=== PATIENT | female | born 1955 | race Caucasian/White ===

== ENCOUNTER → 2016-07-10 | Day surgery (SDC) | payer BC ==
[~2016-07-10] MED LIST: ALPRAZolam 0.25 MG TAB ONE; BACITRACIN OINT 1 EACH PACKET TOPICAL ONE; LIDOCAINE 1% INJ 10MG/ML (20 ML MDV) ONE; LIDOCAINE 1%-EPI 1:100,000 20 ML VIAL ONE; SODIUM BICARB 4% 5 ML VIAL (0.48 MEQ/ML) ONE
--- NOTE | 2016-07-10 13:52 | USB ---
EXAMINATION TYPE: US biopsy breast VAD LT, US biopsy breast VAD RT MG diagnostic mammo BI post biopsy DATE OF EXAM: 07/10/2016 12:48 PM CLINICAL HISTORY: 60-year-old female abnormal mammogram, referred for breast biopsy. TECHNIQUE: Ultrasound guided core biopsy of the bilateral breasts. COMPARISON: 06/05/2016, 05/16/2016 FINDINGS: The procedure of ultrasound guided core biopsy was explained to the patient. Benefits, alternatives, and risks were discussed. An informed consent was then obtained. The patient was placed in supine positioning for imaging and for the procedure. The overlying skin was prepped and draped in usual sterile fashion. LEFT BREAST 1:00, suspicious shadowing lesion: Lidocaine buffered with bicarbonate was used as anesthetic into the skin and subcutaneous tissue up to area of concern. Under ultrasound guidance, a 13-gauge vacuum-assisted mammotome Elite biopsy gun was used to obtain 7 core samples. Following this, a ribbon clip was left in lesion. Note that the left axilla was initially scanned and shows no abnormal lymphadenopathy. RIGHT BREAST 9:00, periareolar, vascular lesion: Lidocaine buffered with bicarbonate was used as anesthetic into the skin followed by lidocaine + epinephrine into the subcutaneous tissue up to area of concern. Under ultrasound guidance, a 13-gauge vacuum-assisted mammotome Elite biopsy gun was used to obtain 5 core samples. Following this, a coil clip was left in lesion. Postbiopsy mammograms show clips in position. The patient tolerated the procedure well without any immediate complication. The patient was kept in the radiology department for short stay after the procedure and then discharged home in stable condition. IMPRESSION: Successful, uncomplicated ultrasound guided core biopsy of: a) 1:00 left breast suspicious lesion. b) 9:00 periareolar right breast vascular lesion. Full pathology results to follow. Pathology Results: Malignant A. 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 FOCAL FEATURES SUGGESTIVE OF INVASION, PENDING SPECIAL STAINS. B. BREAST, LEFT, ULTRASOUND GUIDED CORE BIOPSY: INVASIVE DUCTAL CARCINOMA. Recommendation Appropriate surgical management. CHRISTELD
== END | disposition home or self-care (01) ==
LOC: RADUSWWP 10:31
PROVIDERS: ATTEND Surgery
DX: D05.11 Intraductal carcinoma in situ of right breast (principal); C50.912 Malignant neoplasm of unspecified site of left female breast; N64.1 Fat necrosis of breast; R92.8 Other abnormal and inconclusive findings on diagnostic imaging of breast
CPT/HCPCS: 88305; 88342; 88341; 19083; 19084; G0204; A4648; J2001

== ENCOUNTER 2016-07-25 07:10 | Day surgery (SDC) | payer BC ==
[2016-07-24 08:18] VITALS: BMI 36.5
[~2016-07-25 07:10] MED LIST changes: -ALPRAZolam 0.25 MG TAB ONE; +ALPRAZolam 0.5 MG TAB PO PRN; -BACITRACIN OINT 1 EACH PACKET TOPICAL ONE; +DEXAMETHASONE SOD PHOSPHATE 10 MG/ML 1 ML VIAL IV ONE; +HYDROmorphone 1 MG/ML 1 ML SYRINGE IVP PRN; +LACTATED RINGERS 1,000 ML IV SCH; +LIDOCAINE 1% 20 ML VIAL (10MG/ML) FOR IV START INTRADERMA PRN; -LIDOCAINE 1% INJ 10MG/ML (20 ML MDV) ONE; -LIDOCAINE 1%-EPI 1:100,000 20 ML VIAL ONE; +METHYLENE BLUE 50 MG/10 ML AMPUL ONE; +ONDANSETRON 4 MG/2 ML VIAL IVP ONE; +SCOPOLAMINE 1.5MG/72HR PATCH TRANSDERM ONE; -SODIUM BICARB 4% 5 ML VIAL (0.48 MEQ/ML) ONE; +ceFAZolin 2 GM in SODIUM CHLORIDE 0.9% 100 ML IVPB ONE
[2016-07-25] MEDS ORDERED: LIDOCAINE 1% 20 ML VIAL (10MG/ML) FOR IV START INTRADERMA ONE (07:44)
[2016-07-25 07:46] VITALS: RESP 16
[2016-07-25 08:34] LABS: Potassium 3.9 mmol/L (3.5-5.1)
[2016-07-25] MEDS ORDERED: HEPARIN SODIUM,PORCINE 5,000 UNIT/ML 1 ML VIAL SQ ONE (08:37)
[2016-07-25] MEDS ORDERED: SODIUM BICARB 4% 5 ML VIAL (0.48 MEQ/ML) MISCELLANE ONE ×2 (08:42→08:56)
[2016-07-25] MEDS ORDERED: LIDOCAINE 1% INJ 10MG/ML (20 ML MDV) SQ ONE ×2 (08:42→08:56)
[2016-07-25] MEDS ORDERED: METHYLENE BLUE 50 MG/10 ML AMPUL ONE (09:00)
--- NOTE | 2016-07-25 09:48 | NM ---
EXAMINATION TYPE: NM sentinel node injection DATE OF EXAM: 07/25/2016 9:38 AM COMPARISON: NONE HISTORY: Newly diagnosed bilateral breast cancer. TECHNIQUE AND FINDINGS: The procedure of sentinel lymph node injection was explained to the patient. The benefits, alternatives, and risks were discussed. An informed consent was then obtained. Overlying skin is cleaned with sterile alcohol. Lidocaine buffered with bicarbonate was used as anes thetic into the skin and subcutaneous tissue surrounding the nipple. Following this, 550uCi & 545 uC i Tc 99m Filtered Sulfur Colloid was injected into 4 equivalent doses at 12, 3, 6, and 9:00 position surrounding the bilateral nipples intradermally. The injection sites were massaged by industrial technologist for 10 minutes after injection. T he patient tolerated the procedure well without any immediate complication. The patient was kept in the radiology department for short stay after the procedure and then taken to surgery for surgical pr ocedure what is presumed intraoperative gamma probe will be used for sentinel lymph node detection. IMPRESSION: Bilateral breast radiotracer injection for sentinel node localization as above.
[2016-07-25] MEDS ORDERED: fentaNYL (PF) 50 MCG/ML 2 ML AMP ONE (10:14)
[2016-07-25] MEDS ORDERED: MIDAZOLAM 2 MG/2 ML VIAL ONE (10:14)
[2016-07-25] MEDS ORDERED: VECURONIUM 10 MG VIAL IV ONE (10:14)
[2016-07-25] MEDS ORDERED: PROPOFOL 10 MG/ML 20 ML VIAL IV ONE (10:14)
[2016-07-25] MEDS ORDERED: GLYCOPYRROLATE 0.2 MG/ML 2 ML VIAL ONE (10:14)
[2016-07-25] MEDS ORDERED: NEOSTIGMINE 1 MG/ML 10 ML VIAL ONE (10:14)
[2016-07-25] MEDS ORDERED: LIDOCAINE 1% INJ 10MG/ML (20 ML MDV) ONE (10:14)
[2016-07-25] MEDS ORDERED: ePHEDrine 50 MG/ML 1 ML AMP ONE (10:14)
[2016-07-25] MEDS ORDERED: HYDROmorphone (PF) 1 MG/ML ONE (10:14)
[2016-07-25] MEDS ORDERED: SUCCINYLCHOLINE CHLORIDE 100 MG/5 ML SYR IV ONE (10:14)
[2016-07-25] MEDS ORDERED: METHYLENE BLUE 10 MG/ML 1 ML VIAL INJ ONE (10:20)
[2016-07-25] MEDS ORDERED: LACTATED RINGERS 1,000 ML IV ONE ×2 (11:27→16:08)
--- NOTE | 2016-07-25 13:36 | MM ---
EXAMINATION TYPE: MG pre op needle loc LT, MG surgical specimen LT, MG surgical specimen RT, MG pre op needle loc RT DATE OF EXAM: 07/25/2016 9:29 AM COMPARISON: Prior bilateral diagnostic breast mammogram July 10, 2016 after biopsy. CLINICAL HISTORY: Newly diagnosed bilateral breast cancer TECHNIQUE: Needle localization with wire placement and surgical excision of area of concern in the bilateral breasts. FINDINGS: The procedure of needle localization with wire placement and than surgical excision was explained to the patient. Benefits, alternatives, and risks were discussed. An informed consent was then obtained. The lateral approach was chosen on the left as well as fairly similar in distance to cranial approach. A cranial approach was attempted on the right as was fairly similar to lateral approach. The overlying skin was prepped and draped in usual sterile fashion. Lidocaine buffered with bicarbonate was used as anesthetic into the skin and subcutaneous tissue up to the level of area of concern. A 5 cm needle was used on the right. A 7 cm needle was used on the left. Subsequent 90 degrees mammogram show the needle to be in satisfactory position relative to the targeted area. At this point, wire was placed and the needle was withdrawn. The wire was fixed to patient's skin. Images were marked for surgeon for both breasts. The patient tolerated the procedure well without any immediate complication. The patient was kept in the radiology department for short stay after the procedure and then taken to surgery for surgical excision. Targeted biopsy clips and wire are identified in specimen mammogram in both breasts. The patient was kept in hospital for short stay after the procedure and then discharged home in stable condition. IMPRESSION: Successful, uncomplicated needle localization with wire placement and surgical excision of targeted biopsy clips in the bilateral breasts , full pathology results to follow. Pathology Results: Malignant A. LYMPH NODE, RIGHT, SENTINEL NODE BIOPSY: TWO LYMPH NODES NEGATIVE FOR METASTASIS (CYTOKERATIN 7 AND RODERICK IMMUNOHISTOCHEMICAL STAINS ARE CONFIRMATORY). B. LYMPH NODE, LEFT, SENTINEL NODE BIOPSY: LYMPH NODES NEGATIVE FOR METASTASIS ( CYTOKERATIN 7 AND RODERICK IMMUNOHISTOCHEMICAL STAINS ARE CONFIRMATORY). C. LYMPH NODE, LEFT, SENTINEL NODE BIOPSY: LYMPH NODES NEGATIVE FOR METASTASIS ( CYTOKERATIN 7 AND RODERICK IMMUNOHISTOCHEMICAL STAINS ARE CONFIRMATORY). D. BREAST, LEFT, NEEDLE LOCALIZATION BIOPSY: INVASIVE DUCTAL CARCINOMA AND DUCT CARCINOMA IN SITU. ATYPICAL DUCTAL HYPERPLASIA. INTRADUCTAL PAPILLOMA WITH ATYPIA. FIBROCYSTIC CHANGE (STROMAL FIBROSIS, CYST FORMATION, APOCRINE METAPLASIA, ADENOSIS, COLUMNAR CELL CHANGE, AND DUCT HYPERPLASIA). BIOPSY SITE CHANGE. E, BREAST, RIGHT, IMAGE GUIDED WIRE LOCALIZATION AND LUMPECTOMY: PENDING CONSULTATION. F. BREAST, RIGHT NEW MEDIAL MARGIN, EXCISIONAL BIOPSY: FIBROCYSTIC CHANGE ( STROMAL FIBROSIS, CYST FORMATION, ADENOSIS AND MILD DUCT HYPERPLASIA). G. LYMPH NODE, AXILLARY, LYMPH NODE BIOPSY: TOW LYMPH NODES NEGATIVE FOR METASTASIS. ADDENDUM REPORT BREAST, RIGHT LUMPECTOMY ([id number]; [id number], 07/25/16): LOW NUCLEAR GRADE DUCTAL CARCINOMA IN SITU INVOLVING AN INTRADUCTAL PAPILLOMA. ATYPICAL LOBULAR HYPERPLASIA. FIBROCYSTIC CHANGES. BIOPSY SITE CHANGES. PLEASE SEE LETTER. Recommendation Surgical consult of the right and left breast. MTDD
--- NOTE | 2016-07-25 13:48 | P.OP ---
Date of Procedure: 07/25/16 Preoperative Diagnosis: Right breast DCIS, left breast invasive ductal breast cancer Postoperative Diagnosis: Same Procedure(s) Performed: Bilateral methylene blue injection for lymphatic node mapping, bilateral lumpectomies, bilateral BioSorb insertion, bilateral sentinel node biopsy Implants: BioSorb 2; 4 x 4 centimeters Anesthesia: KATEA Surgeon: Yuki Dallas Estimated Blood Loss (ml): 10 IV fluids (ml): 1,500 Urine output (ml): 200 Pathology: other (Bilateral lumpectomy specimens, bilateral sentinel nodes) Condition: stable Disposition: PACU Indications for Procedure: Right breast DCIS on core biopsy, left breast invasive ductal cancer on core biopsy Operative Findings: Right breast sentinel node negative on frozen section for cancer, left breast Description of Procedure: Patient is a 60-year-old white female who presented for bilateral lumpectomy and bilateral sentinel node biopsy. The patient had bilateral pulmonary biopsy was performed. The patient's breast was ductal carcinoma in situ left breast was invasive ductal carcinoma. The options of bilateral mastectomy versus lumpectomy discussed with the patient. The option of preoperative MRI was discussed with the patient. The patient did not want to have an MRI performed. She did not want bilateral mastectomies. Therefore proceeding with bilateral lumpectomies and sentinel node biopsies. Patient was taken to the operating room and following induction of general anesthesia both breasts and axilla were prepped and draped in a sterile fashion. Prior to this 5 mL of half-strength methylene blue were injected into the periareolar area. The specimen was then massaged to allow the blue dye to travel to the sentinel lymph nodes. Again after this had been accomplished both breasts were prepped and draped as well as both axilla in a sterile fashion. The right breast which was passed with DCIS was approached initially. Circumareolar incision was made and carried down to the hook of the Olympus video localization. Surrounding tissue was excised. The tissue was interrogated using the margin probe and the margin was positive for malignancy. Therefore additional tissue was taken at the medial margin. The specimen was painted and sent to radiology for confirmation that the area of concern about removed was obtained. This was visualized and evaluated by the surgeon as well and it was felt that the clip was in good position. Following this after we were assured that hemostasis was attained onco plastic surgical freeing of the anterior portion of the breast was performed. Thsi was done for pproximately 5 cm anteriorly. The lateral tissue was reapproximated. The cavity was then measured a 4 x 4 Biozorb coil was chosen. This was placed and secured using 3-0 Vicryl suture. The breast tissue was closed anterior to this. The deep tissues were closed using 3-0 Vicryl suture. The skin was closed using a 4-0 Monocryl. The conchal plastic tissue manipulation was approximately 5 cm x 4 cm approximately 20 square cm of tissue. Following this the left breast was approached. Incision was made in the area of the RIGHT lobe. The artery was identified and the surrounding tissue was excised. This was accomplished using electrocautery as well as the Harmonic scalpel. The specimen was interrogated using the margin probe and all margins were negative for cancer. Dissection had been performed down to the pectoralis major muscle. After assured that hemostasis was attained the specimen was painted and sent for radiographic evaluation. Confirmation that the area of concern about removed was obtained. Following this the cavity was measured for BioSorb placement. A 4 x 4 BioSorb was chosen. This was placed and secured using 3-0 Vicryl suture. The breast tissue was closed anteriorly using a Vicryl suture. The skin was closed using 4-0 Monocryl. The right axilla was then approached and gloves and instruments were obtained. Using the neoprobe the location for the incision was chosen. An axillary incision was made and careful dissection into the axilla revealed 2 radioactive blue lymph nodes. These were removed and sent for pathologic evaluation. Pathologic evaluation was negative for cancer. No further suspicious lymph nodes were identified in the right axilla. The left axilla was then approached. Again using the neoprobe the area for skin incision was determined. The axilla was entered and two radioactive lymph, blue nodes were identified. These were removed and sent for frozen section evaluation. These were negative for cancer. The deep tissues were closed using 3-0 Vicryl suture. The skin was closed using 4-0 Monocryl. At the end of the case all instrument and sponge counts were correct. The patient tolerated the procedure in stable condition.
--- NOTE | 2016-07-25 13:50 | P.DS ---
Providers Attending physician: Yuki Dallas Primary care physician: Melody Chen Plan - Discharge Summary New Discharge Prescriptions: HYDROcodone/APAP 5-325MG [[place] 5] 1 - 2 each PO Q4H PRN #20 tab PRN Reason: Pain Discharge Medication List Hydrochlorothiazide 25 mg PO DAILY 09/16/14 [History] ARIPiprazole [Abilify] 10 mg PO DAILY 07/24/16 [History] Levothyroxine Sodium [Synthroid] 75 mcg PO DAILY 07/24/16 [History] Losartan Potassium [Cozaar] 100 mg PO DAILY 07/24/16 [History] Pramipexole [Mirapex] 0.5 mg PO ONCE 07/24/16 [History] Soy Isofla/Blk Cohosh/Mag Bark [[place]roven 155 mg Capsule] 155 mg PO DAILY [History] amLODIPine [Norvasc] 10 mg PO DAILY 07/24/16 [History] HYDROcodone/APAP 5-325MG [[place] 5] 1 - 2 each PO Q4H PRN #20 tab 07/25/16 [Rx] Follow up Appointment(s)/Referral(s): Yuki Dallas MD [STAFF PHYSICIAN] - 1 Week Activity/Diet/Wound Care/Special Instructions: Do not drive today Do not drive if taking narcotic pain medication Patient may shower after 48 hours wear Bra at all times Discharge Disposition: HOME SELF-CARE
[2016-07-25 14:02] VITALS: TEMP 97.6
[2016-07-25] MEDS ORDERED: ONDANSETRON 4 MG/2 ML VIAL IVP ONE (15:32)
[2016-07-25 16:30] VITALS: BP 116/72; PULSE 66
== END 2016-07-25 16:36 | disposition home or self-care (01) ==
LOC: OR 07:10
PROVIDERS: ATTEND Surgery
DX: C50.912 Malignant neoplasm of unspecified site of left female breast (principal); D05.11 Intraductal carcinoma in situ of right breast; D24.2 Benign neoplasm of left breast; D24.1 Benign neoplasm of right breast; N60.12 Diffuse cystic mastopathy of left breast; N60.11 Diffuse cystic mastopathy of right breast; N60.82 Other benign mammary dysplasias of left breast; N60.91 Unspecified benign mammary dysplasia of right breast; N60.22 Fibroadenosis of left breast; N60.21 Fibroadenosis of right breast; N60.92 Unspecified benign mammary dysplasia of left breast; Z80.3 Family history of malignant neoplasm of breast; I10 Essential (primary) hypertension; E03.9 Hypothyroidism, unspecified; F32.9 Major depressive disorder, single episode, unspecified; I34.1 Nonrheumatic mitral (valve) prolapse; K21.9 Gastro-esophageal reflux disease without esophagitis; Z79.899 Other long term (current) drug therapy
CPT/HCPCS: 19301; 38525; 80051; 88342; 88331; 88332; 88307; 88341; 76098 ×2; 19281; 19282; 38792; C1713; A9541; J2250; J1644; J2710; J0690; J2405; J2001; J3010; J1170; J0330; J2704; Q9968

== ENCOUNTER → 2019-11-12 | Outpatient (CLI) | payer BC ==
[2019-11-12 13:40] VITALS: BP 140/75; PULSE 91; RESP 16; TEMP 98.6; BMI 36.3
--- NOTE | 2019-11-12 14:42 | P.GSHP ---
History of Present Illness H&P Date: 11/12/19 She comes in with troubles with her band. She has had her band beyond 10 years. She reports troubles find. She has heartburn. No pain. No redness. No band revisions. She wants her band out. Discharge instructions. She has a heart condition. Dr Gomez cardiac clearance. She does not take a MVI. Easily palpable port without pain. Labs bariatric Dr Gomez cardiac clearance Remove band. Past Medical History Past Medical History: Cancer, GERD/Reflux, Hypertension, Mitral Valve Prolapse (MVP), Thyroid Disorder Additional Past Medical History / Comment(s): mitral valve leak. BILAT BREAST CANCER History of Any Multi-Drug Resistant Organisms: None Reported Past Surgical History: Bariatric Surgery, Section, Cholecystectomy Additional Past Surgical History / Comment(s): lap band, 2 c-sections. BREAST BIOPSY BILAT Past Anesthesia/Blood Transfusion Reactions: No Reported Reaction Past Psychological History: No Psychological Hx Reported Smoking Status: Never smoker Past Alcohol Use History: Occasional Past Drug Use History: None Reported - Past Family History Mother Family Medical History: Cancer, Diabetes Mellitus Additional Family Medical History / Comment(s): breast cancer Medications and Allergies Home Medications Medication Instructions Recorded Confirmed Type Hydrochlorothiazide 25 mg PO DAILY 09/16/14 07/24/16 History ARIPiprazole [Abilify] 10 mg PO DAILY 07/24/16 07/24/16 History Levothyroxine Sodium [Synthroid] 75 mcg PO DAILY 07/24/16 07/24/16 History Losartan Potassium [Cozaar] 100 mg PO DAILY 07/24/16 07/24/16 History Pramipexole [Mirapex] 0.5 mg PO ONCE 07/24/16 07/25/16 History Soy Isofla/Blk Cohosh/Mag Bark 155 mg PO DAILY 07/24/16 07/24/16 History [[place]ro[place] 155 mg Capsule] amLODIPine [Norvasc] 10 mg PO DAILY 07/24/16 07/24/16 History HYDROcodone/APAP 5-325MG [[place] 5] 1 - 2 each PO Q4H PRN #20 tab 07/25/16 Rx Allergies Allergy/AdvReac Type Severity Reaction Status Date / Time No Known Allergies Allergy Verified 07/25/16 07:38 Surgical - Exam Vital Signs Temp Pulse Resp BP 98.6 F 91 16 140/75 06/24/20 13:38 11/12/19 13:38 11/12/19 13:38 11/12/19 13:38
[2019-11-12 15:27] LABS: HGB 15.9 gm/dL (11.4-16.0); MCHC 32.5 g/dL (31.0-37.0); MCV 92.1 fL (80.0-100.0); Mean Platelet Volume 7.1; Platelet Count 331 k/uL (150-450); RBC 5.32 m/uL (3.80-5.40); RDW 13.3 % (11.5-15.5); WBC 6.2 k/uL (3.8-10.6)
[2019-11-12 15:35] LABS: INR 0.9 (<1.2); Partial Thromboplastin Time 22.5 sec (22.0-30.0); Prothrombin Time 9.8 sec (9.0-12.0)
[2019-11-13] LABS: % Iron Saturation 20.52 (12.00-45.00); African American GFR (CKD) 79.4 (60.0-200.0); Albumin 4.4 g/dL (3.80-4.90); Albumin/Globulin Ratio 1.76 (1.60-3.17); Anion Gap 12.2 mmol/L (4.00-12.00); BUN/Creat Ratio 18.89 Ratio (12.00-20.00); Calcium 9.6 mg/dL (8.7-10.3); Carbon Dioxide 26.8 mmol/L (21.6-31.8); Chol/HDL Ratio 2.87; Globulin 2.5 g/dL (1.6-3.3); Magnesium 2.1 mg/dL (1.5-2.4); Non-African American GFR(CKD) 68.5 (60.0-200.0); Phosphorus 4.3 mg/dL (2.4-5.1); Potassium 3.4 mmol/L (3.5-5.5); Total Bilirubin 0.5 mg/dL (0.3-1.2); Total Protein 6.9 g/dL (6.2-8.2)
[2019-11-13 00:09] LABS: Ferritin 70.3 ng/mL (10.0-291.0)
[2019-11-13 01:38] LABS: Hemoglobin A1C 5.4 % (4.0-6.0)
[2019-11-14 12:49] LABS: Zinc, Serum 61 ug/dL (60-130)
[2019-11-16 02:11] LABS: Selenium 105 mcg/L (63-160)
[2019-11-17 08:33] LABS: Vit B1(Thiamine) 64 ug/L (38-122)
[2019-11-17 08:45] LABS: Vitamin A 69 ug/dL (38-106)
== END | disposition home or self-care (01) ==
LOC: BARWHC3 13:08
PROVIDERS: ATTEND Surgery Plastic and Reconstructive Surgery
DX: Z46.51 Encounter for fitting and adjustment of gastric lap band (principal); K21.9 Gastro-esophageal reflux disease without esophagitis; I10 Essential (primary) hypertension; I34.1 Nonrheumatic mitral (valve) prolapse; E21.1 Secondary hyperparathyroidism, not elsewhere classified; D50.9 Iron deficiency anemia, unspecified; K90.9 Intestinal malabsorption, unspecified; K50.90 Crohn's disease, unspecified, without complications; K74.1 Hepatic sclerosis; N19 Unspecified kidney failure; Z98.84 Bariatric surgery status; Z90.49 Acquired absence of other specified parts of digestive tract; Z79.899 Other long term (current) drug therapy; Z79.890 Hormone replacement therapy
CPT/HCPCS: 36415; 80053; 80061; 82306; 82525; 82607; 82728; 82746; 83036; 83540; 83550; 83735; 83970; 84100; 84134; 84255; 84425; 84443; 84590; 84630; 85027; 85610; 85730; 93005; 99211

== ENCOUNTER → 2020-05-05 | Outpatient (CLI) | payer BC ==
[2020-05-05 14:21] VITALS: BP 138/82; PULSE 86; RESP 12; TEMP 98; BMI 37.0
--- NOTE | 2020-05-06 08:57 | P.PN ---
Subjective Progress Note Date: 05/05/20 DATE: 05/05/2020 CHIEF COMPLAINT: Morbid obesity HISTORY OF PRESENT ILLNESS: Rebeca Pimentel is a 64-year-old female status post adjustable gastric band placement, September 2008. She is 11 years out. She comes in with troubles from her band including intolerance to band fills, gastroesophageal reflux disease, and pain from her band. She presents seeking for band removal. At her heaviest weight she was 230 pounds for her 5 foot frame. Her body mass index was 45.0. She comes in weighing 189 pounds from 186 pounds, 6 months ago. She has gained at least 3 pounds in 6 months. Her lifetime percent excess weight loss is 39%. At her height of 5 foot, her ideal body weight is 127 pound. She is 62 pounds overweight. PAST MEDICAL HISTORY: 1. Morbid obesity due to excess calories, initial BMI 45.0 2. Gastroesophageal reflux disease. 3. Hypertension. 4. Mitral valve prolapse. 5. Hyperlipidemia 6. Hypothyroidism 7. Depressive disorder 8. Restless leg syndrome 9. Vitamin D deficiency PAST SURGICAL HISTORY: 1. Gastric band placement. 2. . 3. Cholecystectomy. 4. Port revision. 5. Bilateral breast biopsy MEDICATIONS: Home Medications Medication Instructions Recorded Confirmed hydroCHLOROthiazide 25 mg PO DAILY 09/16/14 05/24/20 Levothyroxine Sodium [Synthroid] 75 mcg PO DAILY 07/24/16 05/24/20 Pramipexole [Mirapex] 0.5 mg PO HS 07/24/16 05/24/20 amLODIPine [Norvasc] 10 mg PO DAILY 07/24/16 05/24/20 Anastrozole 1 mg PO DAILY 05/04/20 05/24/20 Losartan Potassium [Cozaar] 100 mg PO DAILY 05/04/20 05/24/20 Zolpidem Tartrate [Ambien Cr] 12.5 mg PO HS 05/04/20 05/24/20 Previous Rx's Medication Instructions Recorded Ergocalciferol [Vitamin D2 50,000 unit PO Q7D #12 cap 05/05/20 (DRISDOL)] Acetaminophen Tab [Tylenol Tab] 1,000 mg PO Q6HR PRN #30 tablet 05/10/20 Ibuprofen [Motrin] 600 mg PO Q8HR PRN #30 tab 05/10/20 ALLERGIES: Denies. SOCIAL HISTORY: Lifelong nontobacco user. FAMILY HISTORY: Morbid obesity. Family history of diabetes. REVIEW OF SYSTEMS: CONSTITUTIONAL: At her heaviest weight she was 230 pounds for her 5 foot frame. Her body mass index was 45.0. HEENT: Denies any troubles with vision or hearing. Reports trouble swallowing. ENDOCRINE: Denies any diabetes. Has thyroid disorder RESPIRATORY: Denies any dyspnea on exertion. Denies any obstructive sleep apnea. CARDIOVASCULAR: Denies any heart attack. History of mitral valve prolapse. Has had hyperlipidemia and hypertensive heart disease GI: Has dysphagia to meats and foods. Denies any constipation. Has gastroesophageal reflux disease MUSCULOSKELETAL: Has intermittent lower back pain or joint pain. Has restless leg syndrome : No recent blood in urine or urinary hesitancy. NEURO: No reports of stroke or seizure disorders. PSYCH: No reports of depression or suicidal ideation. HEMATOLOGIC: Denies any easy bruising or bleeding. SKIN: No current skin cancer or rash. BREAST: History of bilateral breast cancer PHYSICAL EXAM: VITAL SIGNS: 5 feet 0, 189 pounds. Body mass index 37.1 Vital Signs Temp 98.0 F 05/05/20 14:15 Pulse 86 05/05/20 14:15 Resp 12 05/05/20 14:15 BP 138/82 05/05/20 14:15 Pulse Ox GENERAL: Well-developed female in no acute distress. ABDOMEN: Soft, non-distended, non-tender. HEENT: No scleral icterus. Extraocular movements grossly intact. Moist mucosa. NECK: Supple. No lymphadenopathy. CHEST: Unlabored respirations, clear. CARDIOVASCULAR: Regular rhythm and rate. 2+ radial pulses MUSCULOSKELETAL: No clubbing, cyanosis or edema. NEURO: No focal lateralizing signs. Cranial nerves II through XII grossly intact PSYCH: Appropriate affect. Alert and order person place and time SKIN: Well perfused. Good skin turgor. LABS: Reviewed Vitamin D is low. ASSESSMENT: 1. Morbid obesity due to excess calories, initial BMI 45.0 to 37.1 2. Gastroesophageal reflux disease. 3. Hypertension. 4. Mitral valve prolapse. 5. Hyperlipidemia 6. Hypothyroidism 7. Depressive disorder 8. Restless leg syndrome 9. Vitamin D deficiency 10. Complications from adjustable gastric band. PLAN: 1. Recommend band removal including all components for complications from her adjustable gastric band. 2. All questions addressed. 3. Vitamin D prescribed for Vitamin D deficiency 68582 units weekly. 4. She is elevated risk for complications due to her hypertensive heart disease and prior revisional surgery of her adjustable gastric band. Objective - Vital Signs Vital signs: Vital Signs Temp 98.0 F 05/05/20 14:15 Pulse 86 05/05/20 14:15 Resp 12 05/05/20 14:15 BP 138/82 05/05/20 14:15 Pulse Ox Intake & Output 05/05/20 05/06/20 05/06/20 18:59 06:59 18:59 Weight 86.092 kg
== END | disposition home or self-care (01) ==
LOC: BARWHC3 13:49
PROVIDERS: ATTEND Surgery Plastic and Reconstructive Surgery
DX: Z48.815 Encounter for surgical aftercare following surgery on the digestive system (principal); E66.01 Morbid (severe) obesity due to excess calories; K21.9 Gastro-esophageal reflux disease without esophagitis; I10 Essential (primary) hypertension; E78.5 Hyperlipidemia, unspecified; E03.9 Hypothyroidism, unspecified; E55.9 Vitamin D deficiency, unspecified; I34.1 Nonrheumatic mitral (valve) prolapse; F32.9 Major depressive disorder, single episode, unspecified; G25.81 Restless legs syndrome; Z68.42 Body mass index [BMI] 45.0-49.9, adult; Z79.890 Hormone replacement therapy; Z79.899 Other long term (current) drug therapy; Z79.1 Long term (current) use of non-steroidal anti-inflammatories (NSAID)
CPT/HCPCS: 99211

== ENCOUNTER → 2020-05-05 | Outpatient (CLI) | payer BC ==
[2020-05-05 15:39] LABS: ALT 27 U/L (4-34); AST 27 U/L (14-36); African American GFR (CKD) >90 (>60 ml/min/1.73 sqM); Alkaline Phosphatase 77 U/L (38-126); Anion Gap 9 mmol/L; Blood Urea Nitrogen 14 mg/dL (7-17); Calcium 9.4 mg/dL (8.4-10.2); Carbon Dioxide 29 mmol/L (22-30); Chloride 102 mmol/L (98-107); Glucose 119 mg/dL (74-99); Non-African American GFR(CKD) 82 (>60 ml/min/1.73 sqM); Potassium 3.3 mmol/L (3.5-5.1); Sodium 140 mmol/L (137-145); Total Bilirubin 0.4 mg/dL (0.2-1.3); Total Protein 6.9 g/dL (6.3-8.2)
[2020-05-05 15:57] LABS: Basophils % (A) 1 %; Eosinophils # (A) 0.1 k/uL (0-0.7); Eosinophils % (A) 2 %; HCT 44.4 % (34.0-46.0); HGB 14.6 gm/dL (11.4-16.0); Lymphocytes # (A) 1.2 k/uL (1.0-4.8); Lymphocytes % (A) 24 %; MCHC 32.9 g/dL (31.0-37.0); MCV 91.2 fL (80.0-100.0); Mean Platelet Volume 7.9; Monocytes # (A) 0.3 k/uL (0-1.0); Monocytes % (A) 6 %; Neutrophils # (A) 3.3 k/uL (1.3-7.7); Neutrophils % (A) 65 %; Platelet Count 258 k/uL (150-450); RBC 4.87 m/uL (3.80-5.40); RDW 13.4 % (11.5-15.5); WBC 5.1 k/uL (3.8-10.6)
== END | disposition home or self-care (01) ==
LOC: LABPAT 14:45
PROVIDERS: ATTEND Surgery Plastic and Reconstructive Surgery
DX: Z01.818 Encounter for other preprocedural examination (principal)
CPT/HCPCS: 80053; 85025

== ENCOUNTER 2020-05-10 08:49 | Day surgery (SDC) | payer BC ==
[2020-05-04 15:13] VITALS: BMI 37.3
--- NOTE | 2020-05-05 14:39 | P.PN ---
Subjective Progress Note Date: 05/05/20 She is here for band removal. All questions addressed. Vitamin D prescribed. Objective - Vital Signs Vital signs: Intake & Output 05/04/20 05/05/20 05/05/20 18:59 06:59 18:59 Weight 86.636 kg
--- NOTE | 2020-05-09 21:48 | P.GSHP ---
History of Present Illness H&P Date: 05/10/20 CHIEF COMPLAINT: Complications from adjustable gastric band HISTORY OF PRESENT ILLNESS: Rebeca Pimentel is a 64-year-old female who presented to the [facility] in January 2014. She had her initial band placed in September 2008. At her heaviest weight she was 230 pounds for her 5 foot frame. Her body mass index was 45.0. She had lost a fair amount of weight and got down to 170 pounds with a maintained 60 pound weight loss. She now comes in weighing 186 pounds from 191 pounds, 5 years ago. She has gained at least 5 pounds in 5 years. Her percent excess weight loss is 43%. She comes in with complications of her adjustable gastric band with heartburn. Secondary to her complications from adjustable gastric banding including intolerance to fills, she is seeking removal of her band. At her height of 5 foot, her ideal body weight is 127 pound. She is approximately 59 pounds overweight. She had fluid up to 3 mL in her band. Her last band fill was August 2014. She comes in today with troubles with her band. She has had her band beyond 10 years. PAST MEDICAL HISTORY: 1. Morbid obesity due to excess calories, initial BMI 45.0 2. Gastroesophageal reflux disease. 3. Hypertension. 4. Mitral valve prolapse. 5. Hyperlipidemia 6. Hypothyroidism 7. Depressive disorder 8. Restless leg syndrome 9. Vitamin D deficiency PAST SURGICAL HISTORY: 1. Gastric band placement. 2. . 3. Cholecystectomy. 4. Port revision. 5. Bilateral breast biopsy MEDICATIONS: Home Medications Medication Instructions Recorded Confirmed hydroCHLOROthiazide 25 mg PO DAILY 09/16/14 07/24/16 ARIPiprazole [Abilify] 10 mg PO DAILY 07/24/16 07/24/16 Levothyroxine Sodium [Synthroid] 75 mcg PO DAILY 07/24/16 07/24/16 Losartan Potassium [Cozaar] 100 mg PO DAILY 07/24/16 07/24/16 Pramipexole [Mirapex] 0.5 mg PO ONCE 07/24/16 07/25/16 Soy Isofla/Blk Cohosh/Mag Bark 155 mg PO DAILY 07/24/16 07/24/16 [Estroven 155 mg Capsule] amLODIPine [Norvasc] 10 mg PO DAILY 07/24/16 07/24/16 Ergocalciferol [Vitamin D2 50,000 unit PO WEEKLY 11/17/19 11/17/19 (DRISDOL)] Previous Rx's Medication Instructions Recorded HYDROcodone/APAP 5-325MG [[place] 5] 1 - 2 each PO Q4H PRN #20 tab 07/25/16 ALLERGIES: Denies. SOCIAL HISTORY: Lifelong nontobacco user. FAMILY HISTORY: Morbid obesity. Family history of diabetes. REVIEW OF SYSTEMS: CONSTITUTIONAL: At her heaviest weight she was 230 pounds for her 5 foot frame. Her body mass index was 45.0. HEENT: Denies any troubles with vision or hearing. Reports trouble swallowing. ENDOCRINE: Denies any diabetes. Has no thyroid disorder RESPIRATORY: Denies any dyspnea on exertion. Denies any obstructive sleep apnea. CARDIOVASCULAR: Denies any heart attack. History of mitral valve prolapse. Has had hyperlipidemia and hypertensive heart disease GI: Has dysphagia to meats and foods. Denies any constipation. Has gastroesophageal reflux disease MUSCULOSKELETAL: Has intermittent lower back pain or joint pain. Has restless leg syndrome : No recent blood in urine or urinary hesitancy. NEURO: No reports of stroke or seizure disorders. PSYCH: No reports of depression or suicidal ideation. HEMATOLOGIC: Denies any easy bruising or bleeding. SKIN: No current skin cancer or rash. BREAST: History of bilateral breast cancer PHYSICAL EXAM: VITAL SIGNS: 5 feet 0, 191 pounds. Body mass index 37.3 GENERAL: Well-developed female in no acute distress. ABDOMEN: Palpable Lap band port left upper quadrant. No signs of erythema, cellulitis or infection. Easily palpable port without pain. HEENT: No scleral icterus. Extraocular movements grossly intact. Moist mucosa. NECK: Supple. No lymphadenopathy. CHEST: Unlabored respirations, clear. CARDIOVASCULAR: Regular rhythm and rate. 2+ radial pulses MUSCULOSKELETAL: No clubbing, cyanosis or edema. NEURO: No focal lateralizing signs. Cranial nerves II through XII grossly intact PSYCH: Appropriate affect. Alert and order person place and time SKIN: Well perfused. Good skin turgor. ASSESSMENT: 1. Morbid obesity due to excess calories, initial BMI 45.0 2. Gastroesophageal reflux disease. 3. Hypertension. 4. Mitral valve prolapse. 5. Hyperlipidemia 6. Hypothyroidism 7. Depressive disorder 8. Restless leg syndrome 9. Vitamin D deficiency PLAN: 1. She comes in with troubles with her band that she has beyond 10 years with heartburn. Recommend removal of adjustable gastric band psychiatric complications. 2. Postoperative discharge instructions reviewed for removal of adjustable gastric band including length of recovery and presence of abdominal binder postoperatively. 3. She has a heart condition and will need cardiac clearance. 4. Recommend full bariatric labs including correction of macro or micronutrients with multivitamins 5. Overall patient presents with elevated risk for complications due to pre- existing cardiac disease for adjustable gastric band removal. Past Medical History Past Medical History: Cancer, Hypertension, Mitral Valve Prolapse (MVP), Thyroid Disorder Additional Past Medical History / Comment(s): mitral valve leak, BILAT BREAST CANCER History of Any Multi-Drug Resistant Organisms: None Reported Past Surgical History: Bariatric Surgery, Breast Surgery, Section, Cholecystectomy, Hysterectomy Additional Past Surgical History / Comment(s): lap band, 2 c-sections, shelia BREAST lumpectomy Past Anesthesia/Blood Transfusion Reactions: No Reported Reaction Smoking Status: Never smoker - Past Family History Mother Family Medical History: No Reported History Additional Family Medical History / Comment(s): breast cancer Medications and Allergies Home Medications Medication Instructions Recorded Confirmed Type hydroCHLOROthiazide 25 mg PO DAILY 09/16/14 05/05/20 History Levothyroxine Sodium [Synthroid] 75 mcg PO DAILY 07/24/16 05/05/20 History Pramipexole [Mirapex] 0.5 mg PO HS 07/24/16 05/05/20 History amLODIPine [Norvasc] 10 mg PO DAILY 07/24/16 05/05/20 History Anastrozole 1 mg PO DAILY 05/04/20 05/05/20 History Losartan Potassium [Cozaar] 100 mg PO DAILY 05/04/20 05/05/20 History Zolpidem Tartrate [Ambien Cr] 12.5 mg PO HS 05/04/20 05/05/20 History Ergocalciferol [Vitamin D2 50,000 unit PO Q7D #12 cap 05/05/20 05/05/20 Rx (DRISDOL)] Allergies Allergy/AdvReac Type Severity Reaction Status Date / Time No Known Allergies Allergy Verified 05/05/20 15:20
[~2020-05-10 08:49] MED LIST changes: +ACETAMINOPHEN TAB 500 MG TAB PO STA; -ALPRAZolam 0.5 MG TAB PO PRN; +CHLORHEXIDINE GLUCONATE 15 ML CUP MUCOUS MEM PRN; -DEXAMETHASONE SOD PHOSPHATE 10 MG/ML 1 ML VIAL IV ONE; +DEXAMETHASONE SOD PHOSPHATE 4 MG/ML 1 ML VIAL IV ONE; +ENOXAPARIN 40 MG/0.4 ML SYRINGE SQ PRN; +GABAPENTIN 300 MG CAP PO STA; +HYDROmorphone 0.5 MG/0.5 ML SYRINGE IVP PRN; -HYDROmorphone 1 MG/ML 1 ML SYRINGE IVP PRN; -LIDOCAINE 1% 20 ML VIAL (10MG/ML) FOR IV START INTRADERMA PRN; -METHYLENE BLUE 50 MG/10 ML AMPUL ONE; +PANTOPRAZOLE 40 MG/10 ML VIAL IV PRN; -SCOPOLAMINE 1.5MG/72HR PATCH TRANSDERM ONE; +SCOPOLAMINE 1.5MG/72HR PATCH TRANSDERM STA; -ceFAZolin 2 GM in SODIUM CHLORIDE 0.9% 100 ML IVPB ONE
[2020-05-10] MEDS ORDERED: MELOXICAM 7.5 MG TAB PO SCH (09:00)
[2020-05-10] MEDS ORDERED: LIDOCAINE 1% (10MG/ML) FOR IV START INTRADERMA ONE (09:35)
[2020-05-10] MEDS ORDERED: GLYCOPYRROLATE 0.2 MG/ML 2 ML VIAL ONE (09:45)
[2020-05-10] MEDS ORDERED: HYDROmorphone (PF) 1 MG/ML ONE (09:45)
[2020-05-10] MEDS ORDERED: NEOSTIGMINE 1 MG/ML 10 ML VIAL ONE (09:45)
[2020-05-10] MEDS ORDERED: ePHEDrine SULFATE/0.9% NACL/PF 50 MG/5 ML SYRINGE IV ONE (09:45)
[2020-05-10] MEDS ORDERED: LIDOCAINE 1% INJ 10MG/ML (20 ML MDV) ONE (09:45)
[2020-05-10] MEDS ORDERED: fentaNYL (PF) 50 MCG/ML 2 ML AMP ONE (09:45)
[2020-05-10] MEDS ORDERED: ROCURONIUM 10 MG/ML (10 ML VIAL) IV ONE (09:45)
[2020-05-10] MEDS ORDERED: PROPOFOL 10 MG/ML 20 ML VIAL IV ONE (09:45)
[2020-05-10] MEDS ORDERED: MIDAZOLAM 2 MG/2 ML VIAL ONE (09:45)
[2020-05-10] MEDS ORDERED: SUCCINYLCHOLINE CHLORIDE 100 MG/5 ML SYR IV ONE (09:45)
[2020-05-10] MEDS ORDERED: LIDOCAINE 1%-EPI 1:100,000 20 ML VIAL SQ ONE ×2 (09:50→10:30)
[2020-05-10] MEDS ORDERED: LACTATED RINGERS 1,000 ML IV ONE ×3 (09:50→11:50)
[2020-05-10 11:30] VITALS: TEMP 98
--- NOTE | 2020-05-10 12:14 | P.OP ---
Date of Procedure: 05/10/20 Description of Procedure: SURGEON: HARLEY LEVIN MD PREOPERATIVE DIAGNOSES: 1. Complications from adjustable gastric band 2. Morbid obesity due to excess calories, initial BMI 45.0 to 36.6 3. Hypertension. 4. Mitral valve prolapse. 5. Hyperlipidemia 6. Hypothyroidism 7. Depressive disorder 8. Restless leg syndrome 9. Vitamin D deficiency 10. Gastroesophageal reflux disease. POSTOPERATIVE DIAGNOSES: 1. Complications from adjustable gastric band 2. Morbid obesity due to excess calories, initial BMI 45.0 to 36.6 3. Hypertension. 4. Mitral valve prolapse. 5. Hyperlipidemia 6. Hypothyroidism 7. Depressive disorder 8. Restless leg syndrome 9. Vitamin D deficiency 10. Gastroesophageal reflux disease. 11. Abdominal peritoneal adhesions greater omentum to abdominal wall 12. Moderate to severe superficial gastritis without bleeding OPERATION: 1. Robotic-assisted da Andres Xi laparoscopic removal of adjustable gastric band and all components. 2. Intraoperative esophagogastroduodenoscopy ANESTHESIA: General with local anesthetic. ESTIMATED BLOOD LOSS: 5 mL SPECIMENS REMOVED: 1. Adjustable gastric band and components Condition: stable Disposition: same day COMPLICATIONS: None. Operative Findings: 1. Moderate adhesions along the epigastrium greater omentum to abdominal wall 2. First-generation Allergan adjustable gastric band removed in total 3. Adjustable gastric band port found along the left costal margin removed in total 4. Mild gastritis INDICATIONS: The patient is a 64-year-old female who presents with complications from her adjustable gastric band. Surgical options were described including removal of the band. As she has persistent pain and discomfort from the band, removal of the adjustable gastric band and port including all components was proposed. Benefits and risks of the procedure were described. Informed consent was obtained. DESCRIPTION: The patient was brought into the operating room theater. She was placed supine. She had received Lovenox subcutaneously for DVT prophylaxis. Additionally she Peridex oral solution as an oral decontaminant was placed per anesthesia. After general induction, the abdomen was prepped and draped in standard sterile fashion. Ioban draping was placed along the abdomen. A robotic da Andres Xi system was prepped and primed. Prior to incision, a timeout protocol was performed and confirmed with the surgical team. Initial attention was brought to removal of the adjustable gastric band port at the left upper abdomen/left costal margin. Proposed incision sites were localized with anesthetic. A transverse 3 cm incision was placed over the adjustable gastric band port site using #11 blade. The incision was deepened to the subcutaneous tissue using electrocautery Bovie cautery. The port was identified and circumferentially dissected free from the surrounding tissues. Once freed, the port was removed from the pocket and placed onto the skin. Attention was now brought to the intra-abdominal component of the procedure the removal of the adjustable gastric band. Incisions were proposed at 12 cm from the xiphoid. Proposed port sites were marked with indelible marker along the anterior axillary line bilaterally, mid clavicular line bilaterally with each port marked 10 cm from each other. A 5 mm 0 degrees laparoscopic trocar entry was performed along the left upper quadrant. The abdomen was insufflated to 15 mmHg pressure, which she tolerated well. Diagnostic laparoscopy demonstrated no injury to bowel, viscera, or mesentery. Adhesions at the epigastrium greater omentum to abdominal was found. An 8 mm camera port was placed left lateral to the umbilicus at the epigastrium, 12 cm distal to the xiphoid. Next, 8-mm port was placed along the right mid abdomen. The 5 mm port was exchanged for 8 mm trocar. Another 8-mm trocar was placed along the left lateral abdominal wall. The robot was docked along the left lateral abdomen. The patient was repositioned in reverse Trendelenburg position, 21-degrees. A 30-degree camera was used. Using a Prograsp for arm 3, including scissors with cautery for arm 1, the robotic system was docked and primed as described. Instruments were interchanged by the assistant program director. I had sat at the console. Minimal adhesions were found about the adjustable gastric band. The port was followed with its tubing to the gastric band. The gastrohepatic ligament was scarred from prior surgery. Using scissors with cautery, the cicatrix of the port was incised. The band was then freed. First-generation Allergan adjustable gastric band was removed in total. The band was unbuckled and cut. The tubing was cut approximately 5 cm distal to the actual adapter. The tubing and port was removed by the assistant program director under direct mobilization. The band was removed in total without injury to the stomach. Hemostasis was excellent. I then went to the head of the bed to perform intraoperative esophagogastroduodenoscopy to evaluate for gastritis and any full thickness injury to the stomach. An Olympus gastroscope was passed from the posterior oropharynx down to the esophagus, where the squamocolumnar junction was found LA grade A erosive esophagitis, chronic changes. The stomach was entered and bile was found and suctioned. Moderate chronic gastritis was found along the antrum without gastric ulcers or duodenitis or duodenal ulcers. Retroflexion of the scope confirmed a Hill grade 2 lower esophageal valve. No full-thickness erosion from the prior band was encountered. The stomach was desufflated. The patient tolerated the procedure well. No evidence of leak was encountered from the removal of the band. The scope was removed with desufflation of the stomach. I re-scrubbed into the case. The adjustable gastric band was removed from the abdominal cavity via the left upper abdomen. Diagnostic laparoscopy demonstrated complete removal of all foreign body. Trocar fascia sites were less than 8-mm in size. All instruments and pneumoperitoneum were evacuated from the abdominal cavity. The port extraction site was hemostatic. The port site was irrigated using normal saline and hydrogen peroxide. The incisions were reapproximated using 4- 0 Monocryl in a subcuticular interrupted fashion. Optifoam dressing was placed over the port extraction site. At the end of the procedure, needle, sponge and instrument counts were verified correct by the surgical instrument mechanic. The patient had tolerated the procedure well. An abdominal binder was placed. The patient was transferred to Postanesthesia Care Unit in stable condition. Postoperative findings with intraoperative images were discussed with the patient's family who were pleased with the level of care. Plan - Discharge Summary Discharge Rx Participant: Yes New Discharge Prescriptions: New Ergocalciferol [Vitamin D2 (DRISDOL)] 50,000 unit PO Q7D #12 cap Ibuprofen [Motrin] 600 mg PO Q8HR PRN #30 tab PRN Reason: Pain Acetaminophen Tab [Tylenol Tab] 1,000 mg PO Q6HR PRN #30 tablet PRN Reason: Pain Continue hydroCHLOROthiazide 25 mg PO DAILY amLODIPine [Norvasc] 10 mg PO DAILY Pramipexole [Mirapex] 0.5 mg PO HS Levothyroxine Sodium [Synthroid] 75 mcg PO DAILY Zolpidem Tartrate [Ambien Cr] 12.5 mg PO HS Losartan Potassium [Cozaar] 100 mg PO DAILY Anastrozole 1 mg PO DAILY Discharge Medication List hydroCHLOROthiazide 25 mg PO DAILY 09/16/14 [History] Levothyroxine Sodium [Synthroid] 75 mcg PO DAILY 07/24/16 [History] Pramipexole [Mirapex] 0.5 mg PO HS 07/24/16 [History] amLODIPine [Norvasc] 10 mg PO DAILY 07/24/16 [History] Anastrozole 1 mg PO DAILY 05/04/20 [History] Losartan Potassium [Cozaar] 100 mg PO DAILY 05/04/20 [History] Zolpidem Tartrate [Ambien Cr] 12.5 mg PO HS 05/04/20 [History] Ergocalciferol [Vitamin D2 (DRISDOL)] 50,000 unit PO Q7D #12 cap 05/05/20 [Rx] Acetaminophen Tab [Tylenol Tab] 1,000 mg PO Q6HR PRN #30 tablet 05/10/20 [Rx] Ibuprofen [Motrin] 600 mg PO Q8HR PRN #30 tab 05/10/20 [Rx] [facility] [place] [facility] Patient Instructions/Handouts: Abdominal Binder (DC), Adjustable Gastric Band Removal (DC) Activity/Diet/Wound Care/Special Instructions: Using antibacterial soap. No lifting over 10 pounds 2 weeks, May 24September shower. No bathtub soaks for 2 weeks, May 24 Wear abdominal binder daily for comfort except for showering. Use ice along incisions for the today to prevent swelling. Discharge Disposition: HOME SELF-CARE
[2020-05-10 12:56] VITALS: BP 115/67; PULSE 78; RESP 18
[2020-05-10] MEDS ORDERED: SODIUM CHLORIDE 0.9% 1,000 ML IV ONE (13:25)
[2020-05-10] MEDS ORDERED: TRIMETHOBENZAMIDE 100 MG/ML 2 ML VIAL IM PRN (13:25)
[2020-05-10] MEDS ORDERED: DEXAMETHASONE SOD PHOSPHATE 10 MG/ML 1 ML VIAL IV STA (13:25)
== END 2020-05-10 13:03 | disposition home or self-care (01) ==
LOC: OR 08:49
PROVIDERS: ATTEND Surgery Plastic and Reconstructive Surgery
DX: K95.09 Other complications of gastric band procedure (principal); K21.00 Gastro-esophageal reflux disease with esophagitis, without bleeding; K22.10 Ulcer of esophagus without bleeding; K29.50 Unspecified chronic gastritis without bleeding; I10 Essential (primary) hypertension; E66.01 Morbid (severe) obesity due to excess calories; I34.1 Nonrheumatic mitral (valve) prolapse; G25.81 Restless legs syndrome; K66.0 Peritoneal adhesions (postprocedural) (postinfection); F32.9 Major depressive disorder, single episode, unspecified; E78.5 Hyperlipidemia, unspecified; E55.9 Vitamin D deficiency, unspecified; E03.9 Hypothyroidism, unspecified; Z79.890 Hormone replacement therapy; Z79.899 Other long term (current) drug therapy; Z68.42 Body mass index [BMI] 45.0-49.9, adult; Z98.891 History of uterine scar from previous surgery; Z90.49 Acquired absence of other specified parts of digestive tract; Z98.890 Other specified postprocedural states; Z90.710 Acquired absence of both cervix and uterus
CPT/HCPCS: 84132; 43774; J2250; J1100; J2710; J0690; J2405; J2001; J1650; J3010; J1170; J0330; J2704; C9113

== ENCOUNTER → 2020-05-24 | Day surgery (SDC) | payer BC ==
[2020-05-24 07:14] VITALS: RESP 16
[2020-05-24 08:47] VITALS: BP 111/71; PULSE 74; TEMP 98.5
--- NOTE | 2020-05-24 09:01 | MM ---
EXAMINATION TYPE: MG stereo VAD BX RT DATE OF EXAM: 05/24/2020 COMPARISON: 03/29/2020 CLINICAL HISTORY: 64-year-old female with history of bilateral breast cancer status post bilateral lumpectomies but with new calcifications at the right surgical site referred for biopsy. TECHNIQUE: Stereotactic guided core biopsy of the right breast. FINDINGS: The procedure of stereotactic guided core biopsy was explained to the patient. Benefits, alternatives, and risks were discussed. An informed consent was then obtained. [facility]. [facility] pathway was a medial approach. I performed the localization followed by the remainder of the procedure. A vacuum assisted biopsy gun was used to obtain 7 core samples. The patient tolerated the procedure well without any immediate complication. The patient was kept in the radiology department for short stay after the procedure and then discharged home in stable condition. Targeted calcifications are identified in specimen mammogram. Post biopsy mammogram shows the clip to appear in satisfactory position relative to the targeted area of concern on the preprocedure images. IMPRESSION: SUCCESSFUL, UNCOMPLICATED STEREOTACTIC GUIDED CORE BIOPSY OF DEVELOPING RIGHT BREAST MICROCALCIFICATIONS (POSSIBLE EARLY FAT NECROSIS) AT THE PATIENT'S CENTRALLY LOCATED SURGICAL SITE WITHIN THE RIGHT BREAST. FULL PATHOLOGY RESULTS TO FOLLOW. Pathology Results: Benign RIGHT BREAST, STEREOTACTIC CORE BIOPSY: Scar with fat necrosis and calcifications. Negative for malignancy. Recommendation Follow up mammogram of the right breast in 6 months. [facility]
== END ==
LOC: RADMAMWWP 07:00
PROVIDERS: ATTEND Internal Medicine Hematology & Oncology
DX: N64.1 Fat necrosis of breast (principal); R92.8 Other abnormal and inconclusive findings on diagnostic imaging of breast; L90.5 Scar conditions and fibrosis of skin; R92.1 Mammographic calcification found on diagnostic imaging of breast
CPT/HCPCS: 88305; 19081; A4648; J2001